=== PATIENT | female | born 2000 | race Caucasian/White ===

== ENCOUNTER 2022-12-22 06:13 | Inpatient (IN) ==
[2022-12-22] MEDS ORDERED: PITOCIN ONE (06:31)
[2022-12-22] MEDS ORDERED: D5 1/2 NS 1,000 ML 1,000 ML IV ONE (06:32)
[2022-12-22] MEDS ORDERED: D5 1/2 NS 1,000 mL + PITOCIN 20 UNITS/L IV 20 UNITS/1,000 ML BAG IV ONE (06:32)
[2022-12-22] MEDS ORDERED: BETADINE SOLN ONE (06:32)
[2022-12-22] MEDS ORDERED: D5 LR + PITOCIN 10 UNITS/L 10 UNITS/1,000 ML BAG IV ONE ×2 (06:32→17:39)
[2022-12-22] MEDS: D5 1/2 NS 1,000 ML 1,000 ML IV SCH (06:55)
--- NOTE | 2022-12-22 07:14 | DR.OB ---
OB Quick Note - Assessment/Plan Assessment/Plan: L&D 12/22/22 at 7:00am S-No complaint. O-Afebrile,VSS [id number] with good LTV, +accel, no decel. CTX=none CVX=2-3cm/50%/-1/VTX AROM with clear fluid. IUPC and FSE placed. A-IUP at 38 5/7 weeks for induction PIH P-Begin pitocin induction F/U preeclamptic labs Anticipate
[2022-12-22] MEDS ORDERED: MORPHINE SULFATE INJ 2 MG INJ IVP PRN (07:31)
[2022-12-22] MEDS ORDERED: PITOCIN IVP ONE (07:31)
[2022-12-22] MEDS ORDERED: D5 LR + PITOCIN 10 UNITS/L 10 UNITS/1,000 ML BAG IV PRN (07:31)
[2022-12-22] MEDS ORDERED: NUBAIN INJ 20 MG AMP IVP PRN (07:31)
[2022-12-22] MEDS ORDERED: REGLAN INJ 10 MG VIAL IVP PRN (07:31)
[2022-12-22 08:01] LABS: INR 1.01 (0.8-1.3)
[2022-12-22 08:04] LABS: URIC ACID 4.3 mg/dL (2.6-6.0)
[2022-12-22] MEDS ORDERED: LR 1,000 ML IV 1,000 ML IV ONE (12:05)
[2022-12-22] MEDS ORDERED: NAROPIN EPIDURAL 0.2% 100 ML ONE (12:09)
[2022-12-22] MEDS ORDERED: FENTANYL VIAL INJ 100 mcg ONE (12:09)
--- NOTE | 2022-12-22 16:45 | DR.OB ---
OB Quick Note - Assessment/Plan Assessment/Plan: L&D 12/22/22 at 4:40pm Pitocin=22mu/min. S-No complaint. s/p epidural. O-Afebrile,VSS [id number] with good LTV, +accel, no decel. CTX=q 1 1/2 to 3 min., about 45-65mmHg CVX=8cm/50%/-1 A-IUP at 38 5/7 weeks for induction PIH P-Cont. pitocin induction Anticipate
--- NOTE | 2022-12-22 20:41 | DR.OB ---
OB Quick Note - Assessment/Plan Assessment/Plan: Delivery Note [employer] 12/22/22 at 8:20pm Patient complete and pushing. Head delivered over intact perineum. No nuchal cord. Nose and mouth bulb suctioned. Compound presentation with left hand to face noted. Body delivered over intact perineum. Cord clamped x 2 cut. handed to attendant. Cord sent for gases. Placenta delivered spontaneously / intact / 3 vessel cord. No CVX tears. A second degree midline tear noted and repaired with 0-vicryl in usual fashion. Viable male delivered by SVE, VTX/OA with compound presentation, wt=8'8" and 8/9, stable to NBN. Mother stable to RR. [id number].
[2022-12-22] MEDS: D5 1/2 NS 1,000 ML 1,000 ML with PITOCIN 20 UNITS IV SCH ×2 (21:00)
[2022-12-22] MEDS ORDERED: AMBIEN PO PRN (21:25)
[2022-12-22] MEDS ORDERED: DERMOPLAST PAIN RELIEF SPRAY TOP PRN (21:25)
[2022-12-22] MEDS ORDERED: ADACEL or BOOSTRIX TDaP VACCINE IM ONE (21:25)
[2022-12-22] MEDS ORDERED: MILK OF MAGNESIA PO PRN (21:25)
[2022-12-22] MEDS: MOTRIN TAB 800 MG PO PRN (23:37)
[2022-12-23 05:15] LABS: HEMATOCRIT 26.2 % (36.0-47.0)
[2022-12-23 05:24] LABS: HEMOGLOBIN 8.7 g/dL (12.0-16.0)
[2022-12-23] MEDS: D5 1/2 NS 1,000 ML 1,000 ML with PITOCIN 20 UNITS IV SCH ×4 (05:30→20:48)
[2022-12-23] MEDS: PRENATAL PLUS PO SCH (08:37)
[2022-12-23] MEDS: COLACE CAP 100 MG PO SCH ×2 (08:37→21:11)
[2022-12-23] MEDS: MOTRIN TAB 800 MG PO PRN ×2 (08:38→21:11)
[2022-12-23] MEDS ORDERED: PERCOCET TAB 5/325 MG PO PRN (14:33)
[2022-12-23] MEDS: FERROUS GLUCONATE PO SCH (17:39)
[2022-12-23] MEDS: D5 1/2 NS 1,000 ML 1,000 ML IV SCH (20:48)
[2022-12-24] MEDS: MOTRIN TAB 800 MG PO PRN (05:23)
[2022-12-24] MEDS: PRENATAL PLUS PO SCH (09:25)
[2022-12-24] MEDS: FERROUS GLUCONATE PO SCH (09:26)
[2022-12-24] MEDS: COLACE CAP 100 MG PO SCH (09:26)
[2022-12-24] MEDS ORDERED: BETADINE SOLN ONE (09:27)
[2022-12-24 15:55] VITALS: BP 126/67
== END 2022-12-24 12:30 | disposition home or self-care (01) | DRG 807 ==
LOC: LD 06:13 → MED/SURG 21:48
PROVIDERS: ADMIT Specialist; ATTEND Specialist
DX: O13.3 Gestational [pregnancy-induced] hypertension without significant proteinuria, third trimester; Z37.0 Single live birth; Z3A.38 38 weeks gestation of pregnancy; O70.1 Second degree perineal laceration during delivery